=== PATIENT | female | born 1990 | race Two or more races ===

== ENCOUNTER 2017-10-13 09:07 | Day surgery (SDC) | payer BC, MEDICAID ==
[2017-10-13] MEDS ORDERED: PHENAZOPYRIDINE HCL 200 MG TAB PO ONE (09:25)
[2017-10-13] MEDS ORDERED: ACETAMINOPHEN 500 MG TAB PO ONE (09:25)
[2017-10-13] MEDS ORDERED: GABAPENTIN 400 MG CAP PO ONE (09:25)
[2017-10-13] MEDS ORDERED: ceFAZolin 2 GM/SWFI 2 GM/20 ML SYR IVP ONE (09:25)
[2017-10-13] MEDS ORDERED: LIDOCAINE 1% 2 ML INJ ID PRN (09:26)
[2017-10-13] MEDS ORDERED: LR 1,000 ML IV ONE (09:26)
--- NOTE | 2017-10-13 10:18 | PDHPUP ---
History & Physical Update H&P update statement: This history and physical update is based on an assessment of the patient which was completed after admission or registration (within 24 hours), but prior to the surgery/procedure. H&P update: H&P reviewed & patient examined, no change in patient's condition since H&P completed
--- NOTE | 2017-10-13 10:24 | PDANEPAE ---
ANE History of Present Illness endometriosis ablation ANE Past Medical History - Cardiovascular History Hx Hypertension: No Hx Arrhythmias: No Hx Chest Pain: No Hx Coronary Artery / Peripheral Vascular Disease: No Hx CHF / Valvular Disease: No Hx Palpitations: No - Pulmonary History Hx COPD: No Hx Asthma/Reactive Airway Disease: No Hx Recent Upper Respiratory Infection: No Hx Oxygen in Use at Home: No Hx Sleep Apnea: No Sleep Apnea Screening Result - Last Documented: Negative - Neurologic History Hx Cerebrovascular Accident: No Hx Seizures: No Hx Dementia: No - Endocrine History Hx Diabetes: No - Renal History Hx Renal Disorders: Yes Renal History Comment: frequent uti's - Liver History Hx Hepatic Disorders: No - Neurological & Psychiatric Hx Hx Neurological and Psychiatric Disorders: Yes Neurological / Psychiatric History Comment: fibromyalgia - Cancer History Hx Cancer: No - Congenital Disorder History Hx Congenital Disorders: No - GI History Hx Gastrointestinal Disorders: Yes Gastrointestinal History Comment: reflux,gerd,nausea IBS - Other Health History Other Health History: lower missing tooth. endometryosis - Chronic Pain History Chronic Pain: Yes (fibromyalgia) - Surgical History Prior Surgeries: egd 2 yrs ago ANE Review of Systems Review of systems is: negative Review of Systems: - Exercise capacity Exercise capacity: >=4 METS METS (RN): 6 METS ANE Patient History - Allergies Allergies/Adverse Reactions: No Allergies [NKDA] Allergy (Verified 10/13/17 07:22) - Home Medications Home medications: home medication list seen and reviewed - NPO status NPO Status: no food or drink >8 hours NPO Since - Liquids (Date): 10/12/17 NPO Since - Liquids (Time): 22:00 NPO Since - Solids (Date): 10/13/17 NPO Since - Solids (Time): 08:00 - Anes Hx Anes Hx: no prior problems - Smoking Hx Smoking Status: Never smoked - Alcohol Use Alcohol Use: Rarely - Family Anes Hx Family Hx Anesthesia Complications: none ANE Labs/Vital Signs - Vital Signs Blood Pressure: 104/56 Heart Rate: 77 Respiratory Rate: 16 O2 Sat (%): 97 Height: 162.56 cm Weight: 49.895 kg ANE Physical Exam - Airway Neck exam: FROM Mallampati Score: Class 1 Mouth exam: normal dental/mouth exam - Pulmonary Pulmonary: no respiratory distress - Cardiovascular Cardiovascular: regular rate and rhythym - ASA Status ASA Status: II ANE Anesthesia Plan Anesthesia Plan: general endotracheal anesthesia
[2017-10-13] MEDS ORDERED: MIDAZOLAM 2 MG/2 ML VIAL IVP ONE (10:25)
--- NOTE | 2017-10-13 10:26 | POSTOPPROG ---
Post Op Note Date of Operation: 10/13/17 Surgeon: Marck Juárez Squirrel Man: Vee Anderson Anesthesia: GET(General Endotracheal) Pre-op Diagnosis: Pelvic pain, endometriosis, urinary incontinence Post-op Diagnosis: same Procedure: robotic excision of endometriosis, cytos Inf/Abcess present in the surg proc area at time of surgery?: No EBL: Minimal Complications: None
[2017-10-13] MEDS ORDERED: BUPIVACAINE 0.5% 30 ML SDV ONE (10:32)
[2017-10-13] MEDS ORDERED: ROCURONIUM 100 MG/10 ML VIAL ONE ×2 (10:46)
[2017-10-13] MEDS ORDERED: fentaNYL 100 MCG/2 ML INJ ONE ×3 (10:46→12:23)
[2017-10-13] MEDS ORDERED: LIDOCAINE 2% 5 ML SDV ONE (10:46)
[2017-10-13] MEDS ORDERED: PROPOFOL 200 MG/20 ML VIAL ONE (10:47)
[2017-10-13] MEDS ORDERED: PHENYLEPHRINE HCL 100 MCG/ML SYR ONE (11:05)
[2017-10-13] MEDS ORDERED: ONDANSETRON 4 MG/2 ML VIAL ONE ×3 (11:09→14:27)
[2017-10-13] MEDS ORDERED: DEXAMETHASONE 4 MG/ML VIAL ONE ×2 (11:09)
[2017-10-13] MEDS ORDERED: KETOROLAC 30 MG/1 ML SDV ONE (11:09)
[2017-10-13] MEDS ORDERED: SUGAMMADEX SODIUM 200 MG/2 ML VIAL IVP ONE (11:52)
[2017-10-13] MEDS ORDERED: METOCLOPRAMIDE 10 MG/2 ML VIAL IVP PRN (12:17)
[2017-10-13] MEDS ORDERED: HYDROmorphONE/DILAUDID 1 MG/ML INJ IVP PRN (12:17)
[2017-10-13] MEDS ORDERED: ALBUTEROL 3 ML DEYVIAL IH PRN (12:17)
[2017-10-13] MEDS ORDERED: NALOXONE HCL 0.4 MG/ML INJ IVP PRN (12:17)
[2017-10-13] MEDS ORDERED: ACETAMINOPHEN 500 MG TAB PO PRN (12:17)
[2017-10-13] MEDS ORDERED: PROMETHAZINE HCL 25 MG/ML INJ IVP PRN (12:17)
[2017-10-13] MEDS ORDERED: OXYCODONE/APAP 5/325 TAB PO PRN (12:17)
[2017-10-13] MEDS ORDERED: fentaNYL 100 MCG/2 ML INJ IVP PRN (12:17)
--- NOTE | 2017-10-13 12:18 | POSTANESTH ---
Post Anesthetic Evaluation Cardiovascular Status: Normal, Stable Respiratory Status: Normal, Stable Level of Consciousness/Mental Status: Can Participate in Eval Pain Control: Adequate, Prn Tx Ordered Nausea/Vomiting Control: Adequate, Prn Tx Ordered Complications Possibly Related to Anesthesia: None Noted
[2017-10-13] MEDS ORDERED: HYDROmorphONE/DILAUDID 1 MG/ML INJ ONE (12:23)
[2017-10-13] MEDS: ONDANSETRON 4 MG/2 ML VIAL IVP PRN ×2 (12:29→14:29)
[2017-10-13] MEDS ORDERED: HYDROCODONE/APAP 5/325 TAB ONE ×2 (13:04→13:30)
[2017-10-13] MEDS: HYDROCODONE/APAP 5/325 TAB PO PRN ×2 (13:05→13:32)
[2017-10-13 13:29] VITALS: PULSE 69; RESP 14; TEMP 97.5
[2017-10-13 14:43] VITALS: BP 105/61; O2SAT 94
--- NOTE | 2017-11-17 11:02 | GOP ---
[f rep st] OPERATIVE REPORT DATE OF OPERATION: 10/13/2017 SURGEON: Marck Juárez MD [employer] SALES AGENT: LEATHA Salgado. ANESTHESIA: General. PREOPERATIVE DIAGNOSIS: 1. Endometriosis. 2. Pelvic pain. 3. Urinary incontinence. POSTOPERATIVE DIAGNOSIS: 1. Endometriosis. 2. Pelvic pain. 3. Urinary incontinence. PROCEDURE PERFORMED: 1. Robotic excision of endometriosis. 2. Bilateral ureterolysis. 3. Bilateral ovarian pexy. 4. Cystoscopy. FINDINGS: SPECIMENS: Pelvic peritoneum with endometriosis. ESTIMATED BLOOD LOSS: Scant. DESCRIPTION OF PROCEDURE: Patient was taken to the operating room where she was identified. General anesthesia was administered and found to be adequate. She has placed in the lithotomy position and prepared and draped in normal sterile fashion. A Hulka tenaculum was placed in the uterus for manipu lation. A Moyer catheter was then placed. A 1 cm infraumbilical incision was made with a scalpel. The Veress needle with a CO2 gas flowing was advanced into the peritoneal cavity. The abdomen was then insufflated with carbon dioxide gas. The 12 mm trocar followed by the laparoscope were then inserted. The upper abdomen was unremarkable. T here was no evidence of endometriosis on either diaphragm, liver, stomach, gallbladder, spleen or upp er abdominal bowel. Two lateral ports were placed on the right and 1 on the left under direct visual ization. She then was placed in Trendelenburg position and the da Olive robot docked on the left kelle e. The instruments were then brought into the abdominal cavity under direct visualization. The patient had endometriosis in the posterior cul-de-sac and bilateral ovarian fossae. Given the lo cation of the endometriosis overlying both ureters, a bilateral ureterolysis was required. The pelvi c peritoneum at the pelvic brim was incised. The ureters were gently dissected free. They were then lateralized off the overlying peritoneum and endometriosis all the way down to where it crossed unde rneath the uterine arteries. Once this was accomplished, the overlying perineum and endometriosis wa s completely excised from the ovarian fossas bilaterally. The posterior cul-de-sac peritoneum was co mpletely excised from the distal rectum up to the cervix and laterally to the uterosacral ligaments. All specimens were then removed. The pelvis was irrigated with sterile saline and hemostasis was pr esent. A bilateral ovarian pexy was performed by attaching each ovary to the ipsilateral round ligam ents near the internal inguinal ring with 3-0 Vicryl Rapide suture. The robot was then undocked. Th e fascia closed with 0 Vicryl, skin with 4-0 Monocryl and surgical adhesive. Cystoscopy was then performed. Both ureters had vigorous jets of urine. There was no evidence of bl adder nor urethral injury seen. No obvious pathology seen within the bladder. No urethra which woul d account for the patient's urinary incontinence. Anesthesia was reversed. The patient taken to the PACU awake, in stable condition. COMPLICATIONS: None. DISPOSITION: Patient stable to PACU. /[id number]/MODL
== END 2017-10-13 14:43 | disposition home or self-care (01) ==
LOC: FSGY 09:07
PROVIDERS: ATTEND Obstetrics & Gynecology
PROC: 0UBF4ZZ Excision of Cul-de-sac, Percutaneous Endoscopic Approach (ICD-10-PCS; principal; 2017-10-13 10:45)
PROC: 8E0W4CZ Robotic Assisted Procedure of Trunk Region, Percutaneous Endoscopic Approach (ICD-10-PCS; principal; 2017-10-13 10:45)
PROC: 0TN74ZZ Release Left Ureter, Percutaneous Endoscopic Approach (ICD-10-PCS; principal; 2017-10-13 10:45)
PROC: 0TN64ZZ Release Right Ureter, Percutaneous Endoscopic Approach (ICD-10-PCS; principal; 2017-10-13 10:45)
DX: N80.3 Endometriosis of pelvic peritoneum (principal)
CPT/HCPCS: 58662; S2900; J0690; J1100; J1170; J1885; J2250; J2370; J2405; J2704; J3010